=== PATIENT | female | born 1960 ===

== ENCOUNTER 2025-06-01 14:50 | Outpatient (CLI) | payer MEDICARE, MEDICAID ==
--- NOTE | 2025-06-01 15:44 | RADIOLOGY REPORT ---
NON-CONTRAST CHEST COMPUTERIZED TOMOGRAPHY REASON FOR STUDY: BRONCHOPNEUMONIA, UNSPECIFIED ORGANISM. Necrotizing pneumonia COMPARISON: None TECHNIQUE: The exam was performed on a multidetector spiral scanner. Spiral scans were acquired through the chest. 2-D coronal and sagittal reformatted images were provided. Radiation optimization: All CT scans at this facility use at least one of these dose optimization techniques: Automated exposure control mA and/or kV adjustment per patient size (includes targeted exams where dose is matched to clinical indication) or iterative reconstruction. RADIATION DOSE: CTDI: 8 mGy DLP: 328 mGy-cm FINDINGS: There is a tracheostomy tube terminating in the upper trachea. There is mild debris scattered throughout the dependent bronchi in bilateral lower lobes. There is bronchial wall thickening consistent with bronchitis. There is moderate centrilobular emphysematous change throughout the lungs. There is diffuse tree in bud nodularity throughout the left lower lobe. The right lower lobe is completely consolidated. There is bronchiectasis of several right lower lobe bronchi surrounded by consolidated lung tissue. There is no definite pleural effusion. There is no pneumothorax. The aerated segments of lung are hyperinflated. The heart is not enlarged. There is no pericardial effusion. There is a right upper extremity PICC with the tip within the lower SVC. There is no thoracic aortic aneurysm. There are coronary artery calcifications. No pathologic lymphadenopathy is identified by size criteria. Partial visualization of the upper abdomen demonstrates a gastrostomy tube. There is old healed fracture of the right 8th rib. There are degenerative changes in the visualized spine. IMPRESSION: Tree-in-bud nodularity throughout the left lower lobe most likely representing bronchopneumonitis. Consolidation of the right lower lobe. Dilated or bronchiectatic appearance of the right lower lobe bronchi is suggestive of chronic infection versus a necrotizing process. Moderate centrilobular emphysema. Bronchial wall thickening consistent with bronchitis.
== END 2025-06-01 23:59 | disposition home or self-care (01) ==
LOC: RAD 14:50
PROVIDERS: ATTEND Internal Medicine Infectious Disease
DX: J43.2 Centrilobular emphysema (principal); J18.0 Bronchopneumonia, unspecified organism
CPT/HCPCS: 71250